=== PATIENT | female | born 1965 | race Two or more races ===

== ENCOUNTER 2018-08-04 13:45 | Inpatient (IN) | payer OTHER ==
[~2018-08-04] VITALS: Ht 175.3 cm; Wt 98.4 kg
[2018-08-04] MEDS ORDERED: SYNTH PO (15:59)
[2018-08-04] MEDS ORDERED: [UNRECOGNIZED DRUG - OTHER] PO (16:00)
[2018-08-13] MEDS ORDERED: PRILOSEC OTC20 MG PO (08:37)
[2018-08-13] MEDS ORDERED: LEVO-T100 MCG PO (08:38)
== END 2018-08-15 15:35 | disposition home or self-care (01) | DRG 737 ==
LOC: O/R 08-12 06:00 → SURH 08-12 06:00 → O/R 08-12 10:15 → SURH 08-12 13:34 → O/R 08-12 13:45 → SURH 08-15 15:35
PROVIDERS: ADMIT Colon & Rectal Surgery
PROC: 0DTJ0ZZ Resection of Appendix, Open Approach (ICD-10-PCS; 2018-08-12)
PROC: 0DTU0ZZ Resection of Omentum, Open Approach (ICD-10-PCS; 2018-08-12)
PROC: 0T788DZ Dilation of Bilateral Ureters with Intraluminal Device, Via Natural or Artificial Opening Endoscopic (ICD-10-PCS; 2018-08-12)
PROC: 0UT00ZZ Resection of Right Ovary, Open Approach (ICD-10-PCS; principal; 2018-08-12 10:15)
PROC: 30233N1 Transfusion of Nonautologous Red Blood Cells into Peripheral Vein, Percutaneous Approach (ICD-10-PCS; 2018-08-14)
DX: C56.1 Malignant neoplasm of right ovary (principal); D62 Acute posthemorrhagic anemia; C49.A9 Gastrointestinal stromal tumor of other sites